=== PATIENT | female | born 1960 | race Caucasian/White ===

== ENCOUNTER → 2017-06-27 14:09 | Outpatient (CLI) | payer OTHER, SELFPAY ==
--- NOTE | 2017-06-27 14:13 | RAD_ITS ---
STUDY: X-RAY CHEST REASON FOR EXAM: Female, 57 years old. COUGH TECHNIQUE: Frontal and lateral views of the chest. COMPARISON: None. FINDINGS: The lungs are clear and expanded. There is no demonstrated pleural abnormality. Normal size heart. Normal mediastinum and bobby. Normal visualized pulmonary arteries. Normal visualized aortic arch and descending thoracic aorta. Normal visualized thoracic spine. Normal visualized ribs, clavicles, and shoulders. There is no demonstrated abnormality of the visualized soft tissue structures of the upper abdomen. RAD/Chest PA and Lateral IMPRESSION: Normal x-ray examination of the chest. Electronically Signed: Esequiel Colon MD at 17:52 EST , Service support ,
== END ==
PROVIDERS: Visit Provider Physician Assistant
DX: R05 Cough (principal)
CPT/HCPCS: 71046

== ENCOUNTER 2024-09-07 17:13 | Emergency (ER) | payer OTHER, SELFPAY ==
[2024-09-07 17:15] VITALS: BP 146/76; PULSE 74; RESP 19; TEMP 36.7; O2SAT 98
--- NOTE | 2024-09-07 17:34 | EDS_ITS ---
HPI History of Present Illness Chief Complaint: Wound Informant: patient Narrative Narrative: 64-year-old female sustained an injury to her right calf. States she was mowing and tripped and fell and just happened to fall onto a aure tomato cage and one of the ends of the metal punctured into her right thigh, she shows me a picture looks to be 3 to 4 inches long as far as the amount of metal that potentially was embedded into her thigh. She states there was some pulsatile bleeding coming out of the puncture wound but that is stopped now. She takes no blood thinning medications. No other injuries. Able to ambulate without difficulty. No numbness or tingling or weakness. No loss of function. Last tetanus unknown. Tetanus Immunization: >10 years [facility] Medical History Asthma Acute bronchitis, unspecified Acute sinusitis, unspecified Home Medications ?Medication ?Instructions ?Recorded ?Last Taken ?Type benzonatate 200 mg capsule 200 mg PO TID PRN cough #30 caps 04/02/22 Unknown Rx fluoxetine 20 mg capsule 20 mg PO DAILY 05/22/23 Unkn own History montelukast 10 mg tablet 10 mg PO DAILY 05/22/23 Unkn own History topiramate 50 mg tablet 50 mg PO DAILY 05/22/23 Unkn own History cephalexin 500 mg capsule 500 mg PO Q6 #28 CAPSULES Unknown Rx Allergy/AdvReac Type Severity Reaction Status Date / Time latex Allergy NEEDS Verified 09/07/24 17:15 FOLLOW-UP acetaminophen (From Vicodin) AdvReac Itching Verified 09/07/24 17:15 hydrocodone (From Vicodin) AdvReac Itching Verified 09/07/24 17:15 Social History Smoking Status: Unknown if ever smoked alcohol intake: current alcohol intake frequency: a few times a month Alcohol type: wine ROS ROS ED Constitutional Constitutional ED: Denies chills or fever(s) Musculoskeletal Musculoskeletal: Reports extremity pain; Denies neck pain Integumentary Reports wounds; Denies Abrasions or rash Neurologic Neurologic: Denies paresthesias or weakness EXAM Physical Exam Const Vital Signs: 09/07/24 17:15 Temperature 98.1 F Temperature Source Oral Pulse Rate 74 Respiratory Rate 19 H Blood Pressure 146/76 H Blood Pressure Mean 99 Pulse Ox 98 Oxygen Delivery Method Room Air Positive well nourished and well developed General Appearance ED: well developed and NAD Neck full ROM and supple Back/Spine normal ROM and normal to inspection Extremity Extremity Narrative: There is a single puncture wound posterior right mid calf muscle. Compartments are all soft and nondistended. There is no surrounding erythema or signs of an infection. There is no tenderness. States it is sore to move her foot, plantar flexing is full and she is able without difficulty or limitation. Dorsalis pedis and posterior tibial pulses are 2+/4. There is no active bleeding even when attempting to express from the puncture wound. Neuro oriented x3, no focal motor deficits and no sensory deficits noted Sensorium / Orientation: alert Psych mental status grossly normal and thought process normal Skin Skin Narrative: Single puncture wound right posterior calf without signs of bleeding or infection or discharge see above. Rashes: no rashes MDM MDM MDM Narrative Medical decision making narrative: Patient showed me a picture of the metal piece that punctured her. I am at a very low suspicion for any type of retained pieces of metal, it appears to be intact. Her tetanus was updated, nurses cleansed and dressed with bacitracin, and she will be placed on cephalexin for a week to prophylax against infection. There is no evidence of a necrotizing infection here, or other acute infection at this time. We discussed reasons to return, signs of infection. Discharge Plan Triage Chief Complaint: Wound ED Provider: Rakan Tellez Dx/Rx/DC Orders Clinical Impression: Puncture wound of right calf, Immunization, tetanus-diphtheria Instructions: Tdap Vaccine, ED Puncture Wound (General) Prescriptions: New cephalexin 500 mg capsule 500 mg PO Q6 Qty: 28 0RF No Action benzonatate 200 mg capsule 200 mg PO TID PRN (Reason: cough) Qty: 30 0RF montelukast 10 mg tablet 10 mg PO DAILY topiramate 50 mg tablet 50 mg PO DAILY fluoxetine 20 mg capsule 20 mg PO DAILY Primary Care Provider: Zain Moran Referrals: Zain Moran MD [Primary Care Provider] - As Needed (Or if any concerns about possible infection may return to ER) Print Language: Bangladeshi Disposition Disposition: Home, Self Care
[2024-09-07] MEDS: Cephalexin 250 MG Capsule 500 MG PO (17:52)
[2024-09-07 17:54] VITALS: BP 130/78; PULSE 74; RESP 19; TEMP 36.7; O2SAT 98
== END 2024-09-07 17:55 | disposition home or self-care (01) ==
PROVIDERS: Emergency Provider Emergency Medicine; PCP Internal Medicine; Visit Provider Emergency Medicine
DX: S71.131A Puncture wound without foreign body, right thigh, initial encounter (principal); J45.909 Unspecified asthma, uncomplicated; W26.8XXA Contact with other sharp object(s), not elsewhere classified, initial encounter; Z23 Encounter for immunization
CPT/HCPCS: 90715; 99283